=== PATIENT | female | born 1995 | race Caucasian/White ===

== ENCOUNTER 2018-07-23 16:37 | Emergency (ER) | payer SELFPAY ==
[~2018-07-23] VITALS: Ht 170.2 cm; Wt 74.8 kg
[2018-07-23 16:56] VITALS: BP 110/65; Ht 170.2 cm; Wt 74.8 kg
== END 2018-07-23 18:26 | disposition home or self-care (01) ==
LOC: ED 16:37
DX: J06.9 Acute upper respiratory infection, unspecified (principal)